=== PATIENT | female | born 1980 | race Caucasian/White ===

== ENCOUNTER → 2019-11-03 | Outpatient (CLI) | payer MEDICARE, MEDICAID ==
[~2019-11-03] MED LIST: ABIL5TAB OR; ALBUTEROL LIQ INH; AMBI10TA OR; AMBIEN PO; ATIV1TAB2 OR; BENADRYL PO; BENZ2TAB33 OR; BENZ5TA GT; CELEXA PO; CIPR500T89 PO; CLON-412 OR; CYMB1CAP5; FERR325T OR; FLEXERIL; FOLI1TAB86 PO; GUAFENESIN; HALO1TAB21 PO; HALO1TAB29 PO; HYDROXYZINE; IBUP800T; KLON1TAB; KLON1TAB OR; LEVA750T; LORA2TA PO; LORA2TAB; LYRI150C OR; LYRI75CA PO; MICO0.022 PV; MUCINEX OR; NICO21DI26 EXT; ONDA-1 PO; PRED10TA2 OR; PRED1TA OR; PRED2.5T OR; PRED20TA OR; PRED5EL OR; PROZ10CA; PROZ20CA; PROZ20CA OR; QUET30TA OR; RISP4TAB33 PO; SERO1TAB OR; SERO1TAB3; SERO200T OR; SUDA30TA OR; TIZA4TAB OR; TRAZ100T2 PO; TUMS500C OR; TUSSSUS5 OR; ULTR50TA PO; VENL37TA PO; VICO5TAB; VICO5TAB OR; VITA100T2 PO; VITMTA PO; XANA1TAB2; ZOVI400T OR; seroquel
[2019-11-03 10:52] LABS: BASO % 0.1 % (0.0-1.0); EOS # 0.2 10^3/uL (0.0-0.5); EOS % 1.9 % (0.0-3.0); HEMATOCRIT 44.7 % (36.0-47.0); HEMOGLOBIN 14.5 g/dl (12.0-15.5); LYMPH # 3.1 10^3/uL (1.5-5.0); LYMPH % 31.6 % (24.0-44.0); MEAN CORPUSCULAR HEMOGLOBIN 28.2 pg (27.0-33.0); MEAN CORPUSCULAR HGB CONC 32.4 g/dl (32.0-36.5); MEAN CORPUSCULAR VOLUME 86.8 fl (80.0-96.0); MONO # 0.7 10^3/uL (0.0-0.8); MONO % 6.7 % (0.0-5.0); NEUTROPHILS # 5.8 10^3/uL (1.5-8.5); NEUTROPHILS % 59.4 % (36.0-66.0); PLATELET COUNT, AUTOMATED 386 10^3/uL (150-450); RED BLOOD COUNT 5.15 10^6/uL (4.00-5.40); WHITE BLOOD COUNT 9.7 10^3/uL (4.0-10.0)
[2019-11-03 11:36] LABS: ALBUMIN 3.7 GM/DL (3.2-5.2); ALT/SGPT 29 U/L (12-78); BILIRUBIN,TOTAL 0.3 MG/DL (0.2-1.0); BLOOD UREA NITROGEN 17 MG/DL (7-18); CALCIUM LEVEL 9.7 MG/DL (8.5-10.1); CARBON DIOXIDE LEVEL 31 MEQ/L (21-32); CHLORIDE LEVEL 102 MEQ/L (98-107); CHOLESTEROL LEVEL 196 MG/DL (<200); CHOLESTEROL RISK RATIO 4.355 (<5); FREE T4 1.22 NG/DL (0.76-1.46); GLOMERULAR FILTRATION RATE > 60.0 (>60); GLUCOSE, FASTING 100 MG/DL (70-100); HDL CHOLESTEROL 45 MG/DL (>40); LDL CHOLESTEROL 73 MG/DL (<100); NON-HDL-C 151 MG/DL; POTASSIUM SERUM 4.8 MEQ/L (3.5-5.1); SODIUM LEVEL 136 MEQ/L (136-145); TOTAL PROTEIN 7.2 GM/DL (6.4-8.2); TRIGLYCERIDES LEVEL 392 MG/DL (<150)
[2019-11-03 11:55] LABS: HEMOGLOBIN A1c 5.8 %
[2019-11-08 00:06] LABS: LAMOTRIGINE (LAMICTAL) 3.7 ug/mL (2.0-20.0)
== END ==
LOC: M LAB 10:10
PROVIDERS: ATTEND Psychiatry & Neurology Child & Adolescent Psychiatry
DX: F31.9 Bipolar disorder, unspecified (principal)